=== PATIENT | female | born 1975 | race Caucasian/White ===

== ENCOUNTER 2024-08-14 12:20 | Emergency (ER) | payer BC, MEDICAID, SELFPAY ==
--- NOTE | 2024-08-14 12:25 | XR_ITS ---
WS: [id number] Portable AP upright chest, 08/14/2024 Clinical Data: cough Comparison: None. Findings: No nodules, masses or effusions are seen. The heart is normal. The pulmonary vascularity is not increased. No pneumonia or pneumothorax is seen. There our small artifacts overlying the chest which are probably the patient's clothing. XR/XR chest 1V portable [id number] Impression: Negative chest.
[2024-08-14 12:33] VITALS: BP 165/94; PULSE 84; RESP 17; TEMP 36.6; O2SAT 98; BMI 26.6
[2024-08-14 12:52] LABS: Basophils # 0.1 10^3/uL (0.0-0.1); Basophils % 0.6 %; Eosinophils # 0.2 10^3/uL (0.0-0.8); Eosinophils % 2.2 %; Hematocrit 51.1 % (36-47); Lymphocytes # 1.8 10^3/uL (0.8-4.8); Lymphocytes % 21.5 %; Mean Corpuscular HGB Conc 31.1 g/dL (30-55); Mean Corpuscular Hemoglobin 29.5 pg (27-33); Mean Corpuscular Volume 94.8 fl (85-98); Mean Platelet Volume 9.2 fL (7.4-10.4); Monocytes # 0.8 10^3/uL (0.2-0.9); Monocytes % 9.2 %; Neutrophils # 5.53 10^3/uL (1.8-7.7); Neutrophils % 66.3 %; Nucleated Red Blood Cells % 0 %; Platelet Count 295 10^3/cmm (157-399); Red Blood Count 5.39 10^6/uL (3.85-5.65); Red Cell Distribution Width 13.8 % (12.1-15.1); White Blood Count 8.34 10^3/uL (3.29-11.43)
[2024-08-14 13:12] LABS: Alanine Aminotransferase 12 U/L (0-33); Albumin Level 4.1 g/dL (3.5-5.2); Alkaline Phosphatase 108 U/L (35-105); Anion Gap 18.1 (5-19); Aspartate Amino Transferase 12 U/L (0-32); Blood Urea Nitrogen 15 mg/dL (6-20); Calcium 9.3 mg/dL (8.5-10.5); Carbon Dioxide 21 mmol/L (22-29); Chloride 103 mmol/L (98-107); Creatinine Clr Calc Pharmacy 129.5949; Globulin 2.9 g/dL (1.3-4.6); Glomerular Filtration Rate 106.3 mL/min (90-130); Glucose 116 mg/dL (65-115); Lipase 22 U/L (13-60); Osmolality Calculated 288 mOsm/kg (285-295); Potassium 4.1 mmol/L (3.5-5.1); Sodium 138 mmol/L (136-145); Total Bilirubin 0.9 mg/dL (0.15-1.2)
--- NOTE | 2024-08-14 13:50 | US_ITS ---
WS: [id number] Gallbladder and right upper quadrant ultrasound, Clinical Data: RUQ pain Comparison: None. Findings: The gallbladder shows no sludge or stone. The wall measures 0.2 cm with no pericholecystic fluid. The common bile duct is 0.5 cm and there are no intrahepatic ductal abnormalities. Liver shows no cysts, masses or dilated intrahepatic ducts. The liver measures 16.4 cm and has normal echotexture. The portal vein has a normal diameter of 0.7 cm with hepatopetal flow. The pancreas is not obscured by overlying bowel gas and no cyst, pseudocyst, or evidence of pancreatitis is noted. Right kidney measures 9.8 cm and no cyst, masses or hydronephrosis can be seen. The aorta and inferior vena cava show no vascular abnormalities. US/US gall bladder [id number] Impression: Negative gallbladder and right upper quadrant ultrasound.
--- NOTE | 2024-08-14 13:50 | W.ED.ABDPA2 ---
HPI - Abdominal Pain General: Chief Complaint: Abdominal Pain Stated Complaint: cough / abd pain Time Seen by Provider: 08/14/24 13:39 History of Present Illness: 48-year-old female presents emergency room complaining of abdominal discomfort. She has not had any hematemesis coffee-ground emesis. She does admit drinking 10 or more shots per day. She has not had any history of pancreatitis there esophageal varices or upper GI bleed in the past. No known history of alcoholic cirrhosis at this time. Associated Symptoms: Reports nausea; Denies chills, coffee ground emesis, dysuria, fever(s), hematochezia, hematemesis, melena and vomiting Related Data Home Medications ?Medication ?Instructions ?Recorded ?Confirmed gabapentin 300 mg capsule 600 mg PO TID 08/14/24 08/14/24 losartan 25 mg tablet 25 mg PO DAILY 08/14/24 08/14/24 meloxicam 15 mg tablet 15 mg PO DAILY 08/14/24 08/14/24 Previous Rx's ?Medication ?Instructions ?Recorded pantoprazole 40 mg tablet,delayed 40 mg PO BID #60 tabs 08/14/24 release sucralfate 1 gram tablet (Carafate) 1 g PO Q6H PRN stomach upset 4 08/14/24 weeks #112 tabs Allergies Allergy/AdvReac Type Severity Reaction Status Date / Time Penicillins Allergy ADR-Gastrointestinal Verified 08/14/24 12:35 Upset Review of Systems Const: Denies: fever(s) or chills Card: Denies: chest pain Resp: Denies: dyspnea GI: Reports: abdominal pain and nausea; Denies: vomiting, hematemesis, coffee ground emesis, hematochezia or melena : Denies: dysuria, urinary frequency or urinary urgency Musc: Denies: neck pain or back pain Skin/Breast: Denies: rash Physical Exam Const: GENERAL APPEARANCE: cooperative ORIENTATION/CONSCIOUSNESS: Yes awake, Yes oriented to person, Yes oriented to place and Yes oriented to time HENMT: COMMON NORMALS: normocephalic, atraumatic and hearing grossly normal bilaterally HEAD & SCALP: normocephalic and atraumatic Resp: COMMON NORMALS: normal respiratory effort, No retractions, No use of accessory muscles and clear to auscultation bilaterally AUSCULTATION: clear to auscultation bilaterally Cardio: COMMON NORMALS: regular rate, regular rhythm and No murmurs present (Cardio) RATE: regular rate RHYTHM: regular rhythm GI: COMMON NORMALS: No hepatosplenomegaly present AUSCULTATION: Yes normoactive bowel sounds PALPATION: Yes Tenderness to palpation present (GI) (Mild epigastric), No Guarding due to palpation present (GI) and Yes No hepatosplenomegaly present Extremity: COMMON NORMALS: normal to inspection, capillary refill normal, no clubbing, cyanosis or edema, no calf tenderness and no pedal edema Neuro: SENSORIUM/ORIENTATION: Yes oriented to person, Yes oriented to place and Yes oriented to time Skin: COMMON NORMALS: no rashes or lesions noted GENERAL SKIN EXAM: no rashes or lesions noted Course Vital Signs: Vital signs: Vital Signs Temperature 97.9 F 08/14/24 12:33 Pulse Rate 84 08/14/24 12:33 Respiratory Rate 17 08/14/24 12:33 Blood Pressure 165/94 08/14/24 12:33 Pulse Oximetry 98 08/14/24 12:33 Oxygen Delivery Me thod Room Air 08/14/24 12:33 MDM - Abdominal Pain Medical Decision Making Labs and imaging reviewed no signs of active bleeding no signs of acute cholecystitis or pancreatitis. Likely symptoms are due to alcoholic gastritis start on pantoprazole 40 mg twice a day for 10 days then 40 mg daily. Patient also given prescription for Carafate encourage abstinence from alcohol follow-up as needed Medical Records I reviewed the patient's medical records. Lab Data I reviewed the patient's lab results. 08/14/24 12:41 08/14/24 12:41 Labs/Radiology: Radiology Impressions Chest X-Ray 08/14/24 12:25 Impression: Negative chest. Gallbladder Ultrasound 08/14/24 13:50 Impression: Negative gallbladder and right upper quadrant ultrasound. Laboratory Results WBC 8.34 10^3/uL (3.29-11.43) 08/14/24 12:41 RBC 5.39 10^6/uL (3.85-5.65) 08/14/24 12:41 Hgb 15.90 g/dL (11.27-16.99) 08/14/24 12:41 Hct 51.1 % (36-47) H 08/14/24 12:41 MCV 94.8 fl (85-98) 08/14/24 12:41 MCH 29.5 pg (27-33) 08/14/24 12:41 MCHC 31.1 g/dL (30-55) 08/14/24 12:41 RDW 13.8 % (12.1-15.1) 08/14/24 12:41 Plt Count 295 10^3/cmm (157-399) 08/14/24 12:41 MPV 9.2 fL (7.4-10.4) 08/14/24 12:41 Neut % (Auto) 66.3 % 08/14/24 12:41 Lymph % (Auto) 21.5 % 08/14/24 12:41 [place] % (Auto) 9.2 % 08/14/24 12:41 Eos % (Auto) 2.2 % 08/14/24 12:41 Baso % (Auto) 0.6 % 08/14/24 12:41 Neut # (Auto) 5.53 10^3/uL (1.8-7.7) 08/14/24 12:41 Lymph # (Auto) 1.8 10^3/uL (0.8-4.8) 08/14/24 12:41 [place] # (Auto) 0.8 10^3/uL (0.2-0.9) 08/14/24 12:41 Eos # (Auto) 0.2 10^3/uL (0.0-0.8) 08/14/24 12:41 Baso # (Auto) 0.1 10^3/uL (0.0-0.1) 08/14/24 12:41 Nucleated RBC % (auto) 0 % 08/14/24 12:41 Nucleated RBCs # 0.0 /100WBC 08/14/24 12:41 Sodium 138 mmol/L (136-145) 08/14/24 12:41 Potassium 4.1 mmol/L (3.5-5.1) 08/14/24 12:41 Chloride 103 mmol/L (98-107) 08/14/24 12:41 Carbon Dioxide 21 mmol/L (22-29) L 08/14/24 12:41 Anion Gap 18.1 (5-19) 08/14/24 12:41 BUN 15 mg/dL (6-20) 08/14/24 12:41 Creatinine 0.6 mg/dL (0.5-0.9) 08/14/24 12:41 GFR Calculation 106.3 mL/min (90-130) 08/14/24 12:41 Glucose 116 mg/dL (65-115) H 08/14/24 12:41 Calculated Osmolality 288 mOsm/kg (285-295) 08/14/24 12:41 Calcium 9.3 mg/dL (8.5-10.5) 08/14/24 12:41 Total Bilirubin 0.9 mg/dL (0.15-1.2) 08/14/24 12:41 AST 12 U/L (0-32) 08/14/24 12:41 ALT 12 U/L (0-33) 08/14/24 12:41 Alkaline Phosphatase 108 U/L (35-105) H 08/14/24 12:41 Total Protein 7.0 g/dL (6.6-8.7) 08/14/24 12:41 Albumin 4.1 g/dL (3.5-5.2) 08/14/24 12:41 Globulin 2.9 g/dL (1.3-4.6) 08/14/24 12:41 Lipase 22 U/L (13-60) 08/14/24 12:41 Urine Color [place] (Yellow) A 08/14/24 14: Urine Appearance Clear (CLEAR) 08/14/24 14:30 Urine pH 7.0 (5-7) 08/14/24 14:30 Ur Specific [place] 1.022 (1.005-1.030) 08/14/24 14:30 Urine Protein Negative (Negative) 08/14/24 14:30 Urine Glucose (UA) Negative (Normal) 08/14/24 14:30 Urine Ketones Negative (Negative) 08/14/24 14:30 Urine Blood Negative (Negative) 08/14/24 14:30 Urine Nitrate Negative (Negative) 08/14/24 14:30 Urine Bilirubin Negative (Negative) 08/14/24 14:30 Urine Urobilinogen 1.0 mg/dL (Negative) 08/14/24 14:30 Ur Leukocyte Esterase Negative (Negative) 08/14/24 14:30 Urine RBC 0-2 /hpf (0-2) 08/14/24 14:30 Urine WBC 6-10 /hpf (0-5) 08/14/24 14:30 Ur Squamous Epith Cells 6-10 /hpf (0-5) 08/14/24 14:30 Amorphous Sediment Not Reportable 08/14/24 14:30 Urine Bacteria Trace /hpf (NONE) 08/14/24 14:30 Hyaline Casts 0.40 /lpf 08/14/24 14:30 All radiology interpretation(s) finalized by discharge Discharge Plan Discharge Patient Disposition: Home Clinical Impression: Alcoholic gastritis Condition: Stable Prescriptions: New sucralfate [Carafate] 1 gram tablet 1 g PO Q6H PRN (Reason: stomach upset) 28 Days Qty: 112 0RF pantoprazole 40 mg tablet,delayed release (DR/EC) 40 mg PO BID Qty: 60 0RF No Action meloxicam 15 mg tablet 15 mg PO DAILY losartan 25 mg tablet 25 mg PO DAILY gabapentin 300 mg capsule 600 mg PO TID Discharge Orders: Discharge ED (Routine); Ordered 08/14/24 Ordered By: Kel Phillips Referrals: Melanie Chauhan FNP [Primary Care Provider, Family Practice] Discharge Diet: As Directed Discharge Activity: Resume usual activity Patient Instructions: Diet for Stomach Ulcers and Gastritis (ED), Alcohol Dependence (ED), Opioid Safety, Pain Management Activity Restrictions/Additional Instructions: Thank you for choosing [facility] for your healthcare needs today. It is very important that you follow up as instructed or that you return to the Emergency Department should you have concerns or if your condition changes or worsens in any way. You were seen emergency room with stomach upset your laboratory tests are unremarkable. Ultrasound your gallbladder did not show any acute disease. Suspect your symptoms are due to alcohol consumption recommend abstaining from alcohol you are given Carafate to use as needed and started on Protonix 1 tablet twice a day for 10 days then 1 tablet daily Print Language: Nepali Coding Level of Care Code ED Criminal Justice Program Director for Lisa Metcalf
[2024-08-14 14:44] LABS: Bilirubin Urine Negative (Negative); Blood Urine Negative (Negative); Glucose Urine UA Negative (Normal); Ketones Urine Negative (Negative); Leukocyte Esterase Urine Negative (Negative); Nitrate Urine Negative (Negative); Protein Urine Negative (Negative); Specific Gravity, Urine 1.022 (1.005-1.030); Urine Appearance Clear (CLEAR)
[2024-08-14 14:50] LABS: Add Urine Microscopic? YES; Bacteria Urine Trace /hpf; RBC Urine 0-2 /hpf (0-2)
[2024-08-14 14:52] LABS: Urine Color Orange (Yellow)
== END 2024-08-14 15:56 | disposition home or self-care (01) ==
PROVIDERS: Emergency Medicine; Emergency Provider Family Medicine; PCP Registered Nurse
DX: K29.20 Alcoholic gastritis without bleeding (principal)
CPT/HCPCS: 36415; 71045; 76705; 80053; 81001; 83690; 85025; 99284